=== PATIENT | male | born 2000 | race Hispanic/Latino ===

== ENCOUNTER → 2023-07-18 | Emergency (ER) | payer OTHER ==
[~2023-07-18] MED LIST: AZITHROMYCIN 1 GM PACKET ONE; CEFTRIAXONE 1000 MG/VIAL ONE; DOXYCYCLINE 100 MG CAP PO ONE; LIDOCAINE 1% MPF 2 ML AMPULE ONE
--- NOTE | 2023-07-18 16:47 | EDPHYS ---
Physician Documentation [facility] Name: Jey Medellin Age: 22 yrs Sex: Male : 2000 Arrival Date: 07/18/2023 Time: 15:32 Bed 12 Private MD: ED Physician Tk Kim HPI: 07/18 16:42 This 22 yrs old Male presents to ER via Ambulatory with complaints of STD pradip Exposure. 16:42 The patient presents with urinary symptoms, ITCHING , EXPOSED TO CHLAMYDIA. Onset: The pradip symptoms/episode began/occurred 3 day(s) ago. Modifying factors: The symptoms are alleviated by nothing, the symptoms are aggravated by nothing. Associated signs and symptoms: The patient has no apparent associated signs or symptoms. Severity of symptoms: At their worst the symptoms were mild, in the emergency department the symptoms are unchanged. The patient has experienced similar episodes in the past, a few times. Historical: - Allergies: 15:53 No Known Allergies; bp - Home Meds: 15:53 None [Active]; bp - PMHx: 15:53 None; bp - Immunization history:: Adult Immunizations up to date. - Social history:: Smoking status: . - Family history:: not pertinent. ROS: 16:42 Constitutional: Negative for fever, chills, and weight loss, Eyes: Negative for injury, pradip pain, redness, and discharge, ENT: Negative for injury, pain, and discharge, Neck: Negative for injury, pain, and swelling, Cardiovascular: Negative for chest pain, palpitations, and edema, Respiratory: Negative for shortness of breath, cough, wheezing, and pleuritic chest pain, Abdomen/GI: Negative for abdominal pain, nausea, vomiting, diarrhea, and constipation, Back: Negative for injury and pain, MS/Extremity: Negative for injury and deformity, Skin: Negative for injury, rash, and discoloration, Neuro: Negative for headache, weakness, numbness, tingling, and seizure, Psych: Negative for depression, anxiety, suicide ideation, homicidal ideation, and hallucinations, Allergy/Immunology: Negative for hives, rash, and allergies, Endocrine: Negative for neck swelling, polydipsia, polyuria, polyphagia, and marked weight changes, Hematologic/Lymphatic: Negative for swollen nodes, abnormal bleeding, and unusual bruising, 16:42 : Positive for urinary symptoms, Exam: 16:42 Constitutional: This is a well developed, well nourished patient who is awake, alert, pradip and in no acute distress. Head/Face: Normocephalic, atraumatic. Eyes: Pupils equal round and reactive to light, extra-ocular motions intact. Lids and lashes normal. Conjunctiva and sclera are non-icteric and not injected. Cornea within normal limits. Periorbital areas with no swelling, redness, or edema. ENT: Nares patent. No nasal discharge, no septal abnormalities noted. Tympanic membranes are normal and external auditory canals are clear. Oropharynx with no redness, swelling, or masses, exudates, or evidence of obstruction, uvula midline. Mucous membranes moist. Neck: Trachea midline, no thyromegaly or masses palpated, and no cervical lymphadenopathy. Supple, full range of motion without nuchal rigidity, or vertebral point tenderness. No Meningismus. Chest/axilla: Normal chest wall appearance and motion. Nontender with no deformity. No lesions are appreciated. Cardiovascular: Regular rate and rhythm with a normal S1 and S2. No gallops, murmurs, or rubs. Normal PMI, no JVD. No pulse deficits. Respiratory: Lungs have equal breath sounds bilaterally, clear to auscultation and percussion. No rales, rhonchi or wheezes noted. No increased work of breathing, no retractions or nasal flaring. Abdomen/GI: Soft, non-tender, with normal bowel sounds. No distension or tympany. No guarding or rebound. No evidence of tenderness throughout. Back: No spinal tenderness. No costovertebral tenderness. Full range of motion. Male : Normal genitalia with no discharge or lesions. Skin: Warm, dry with normal turgor. Normal color with no rashes, no lesions, and no evidence of cellulitis. MS/ Extremity: Pulses equal, no cyanosis. Neurovascular intact. Full, normal range of motion. Neuro: Awake and alert, GCS 15, oriented to person, place, time, and situation. Cranial nerves II-XII grossly intact. Motor strength 5/5 in all extremities. Sensory grossly intact. Cerebellar exam normal. Normal gait. Psych: Awake, alert, with orientation to person, place and time. Behavior, mood, and affect are within normal limits. Vital Signs: 15:51 BP 161 / 102; Pulse 98; Resp 18; Temp 98; Pulse Ox 100% ; Weight 56.25 kg; Height 5 ft. bp 10 in. ; 16:02 BP 140 / 80; Pulse 80; Resp 17; Temp 97.9(O); Pulse Ox 99% ; rs5 17:05 BP 131 / 78; Pulse 77; Resp 17; Pulse Ox 99% on R/A; rs5 15:51 Body Mass Index 17.79 (56.25 kg, 177.8 cm) bp MDM: 15:34 Patient medically screened. pradip 16:45 Differential diagnosis: UTI, urethritis. Data reviewed: vital signs, nurses notes. [facility] Consideration of Admission/Observation Escalation of care including admission/observation considered. I considered the following discharge prescriptions or medication management in the emergency department Medications were administered in the Emergency Department. See MAR. Test considered but Not performed: Labs: NO LABS , NO SWABS. Administered Medications: 16:46 Drug: Rocephin (cefTRIAXone) IM 1 grams IM once Route: IM; Site: left deltoid; rs5 17:13 Follow up: Response: No adverse reaction rs5 16:46 Drug: AZITHromycin PO 1 grams PO once Route: PO; rs5 17:13 Follow up: Response: No adverse reaction rs5 16:46 Drug: Doxycycline PO 100 mg PO once Route: PO; rs5 17:13 Follow up: Response: No adverse reaction rs5 Disposition Summary: 07/18/23 16:47 Discharge Ordered Notes: Location: Home [facility] Problem: new [facility] Symptoms: have improved pradip Condition: Stable pradip Diagnosis - Nonspecific urethritis [facility] Followup: pradip - With: Private Physician - When: 2 - 3 days - Reason: Recheck today's complaints, Continuance of care, Re-evaluation by your physician Discharge Instructions: - Discharge Summary Sheet [facility] - Urethritis, Adult [facility] - Safe Sex [facility] - Preventing Sexually Transmitted Infections, Adult [facility] Forms: - Medication Reconciliation Form [facility] - Thank You Letter [facility] - Antibiotic Education [facility] - Prescription Opioid Use [facility] - Patient Portal Instructions [facility] - Leadership Thank You Letter [facility] Prescriptions: - Doxycycline Hyclate 100 mg Oral Tablet - take 1 tablet ORAL route every 12 hours; 20 tablet; Refills: 0, Product pradip Selection Permitted Signatures: Tk Kim MD MD cha Peltier, Brian RN RN Justin Turner RN RN rs5
--- NOTE | 2023-07-18 16:47 | ER ---
Nurse's Notes [facility] Name: Jey Medellin Age: 22 yrs Sex: Male : 2000 Arrival Date: 07/18/2023 Time: 15:32 Bed 12 Private MD: Diagnosis: Nonspecific urethritis Presentation: 07/18 15:51 Chief complaint: Patient states: REFERRED BY PCP FOR ITCHY TESTICLES. Coronavirus bp screen: At this time, the client does not indicate any symptoms associated with coronavirus-19. Ebola Screen: No symptoms or risks identified at this time. Initial Sepsis Screen: Does the patient meet any 2 criteria? No. Patient's initial sepsis screen is negative. Does the patient have a suspected source of infection? No. Patient's initial sepsis screen is negative. Risk Assessment: Do you want to hurt yourself or someone else? Patient reports no desire to harm self or others. Onset of symptoms is unknown. 15:51 Method Of Arrival: Ambulatory bp 15:51 Acuity: MADDY 4 bp Triage Assessment: 15:53 General: Appears in no apparent distress. Behavior is calm, cooperative, appropriate bp for age. Pain: Denies pain. Historical: - Allergies: 15:53 No Known Allergies; bp - Home Meds: 15:53 None [Active]; bp - PMHx: 15:53 None; bp - Immunization history:: Adult Immunizations up to date. - Social history:: Smoking status: . - Family history:: not pertinent. Screenin:50 [facility] ED Fall Risk Assessment (Adult) History of falling in the last 3 months, rs5 including since admission No falls in past 3 months (0 pts) Confusion or Disorientation No (0 pts) Intoxicated or Sedated No (0 pts) Impaired Gait No (0 pts) Mobility Assist Device Used No (0 pt) Altered Elimination No (0 pt) Score/Fall Risk Level 0 - 2 = Low Risk Oriented to surroundings, Maintained a safe environment. Abuse screen: Denies threats or abuse. Nutritional screening: No deficits noted. Tuberculosis screening: No symptoms or risk factors identified. Assessment: 15:50 General: Appears in no apparent distress. comfortable, Behavior is calm, cooperative. rs5 Pain: Denies pain. Neuro: Level of Consciousness is awake, alert, obeys commands, Oriented to person, place, time, situation. Cardiovascular: Rhythm is regular. Respiratory: Respiratory effort is even, unlabored, Respiratory pattern is regular, symmetrical. GI: Abdomen is flat, non-distended, Bowel sounds present X 4 quads. Abd is soft and non tender X 4 quads. 15:50 : Reports itchy testicals Denies burning with urination, incontinence, pain urinary rs5 frequency. EENT: No signs and/or symptoms were reported regarding the EENT system. Derm: Skin is intact, Skin is pink, warm \T\ dry. Musculoskeletal: Range of motion: intact in all extremities. 16:55 Reassessment: Patient and/or family updated on plan of care and expected duration. Pain rs5 level reassessed. Patient is alert, oriented x 3, equal unlabored respirations, skin warm/dry/pink. Vital Signs: 15:51 BP 161 / 102; Pulse 98; Resp 18; Temp 98; Pulse Ox 100% ; Weight 56.25 kg; Height 5 ft. bp 10 in. ; 16:02 BP 140 / 80; Pulse 80; Resp 17; Temp 97.9(O); Pulse Ox 99% ; rs5 17:05 BP 131 / 78; Pulse 77; Resp 17; Pulse Ox 99% on R/A; rs5 15:51 Body Mass Index 17.79 (56.25 kg, 177.8 cm) bp ED Course: 15:33 Patient arrived in ED. rg4 15:34 Tk Kim MD is Attending Physician. pradip 15:52 Triage completed. bp 15:53 Arm band placed on. bp 15:55 Patient has correct armband on for positive identification. Bed in low position. Call rs5 light in reach. Side rails up X2. 16:05 Justin Turner, RN is Primary Nurse. rs5 16:15 No provider procedures requiring assistance completed. rs5 17:13 Patient did not have IV access during this emergency room visit. rs5 Administered Medications: 16:46 Drug: Rocephin (cefTRIAXone) IM 1 grams IM once Route: IM; Site: left deltoid; rs5 17:13 Follow up: Response: No adverse reaction rs5 16:46 Drug: AZITHromycin PO 1 grams PO once Route: PO; rs5 17:13 Follow up: Response: No adverse reaction rs5 16:46 Drug: Doxycycline PO 100 mg PO once Route: PO; rs5 17:13 Follow up: Response: No adverse reaction rs5 Medication: 16:15 VIS not applicable for this client. rs5 Outcome: 16:47 Discharge ordered by . pradip 17:06 Discharged to home ambulatory, rs5 17:06 Condition: stable 17:06 Discharge instructions given to patient, Instructed on discharge instructions, follow up and referral plans. medication usage, Demonstrated understanding of instructions, follow-up care, medications, Prescriptions given X 1, 17:14 Patient left the ED. rs5 Signatures: Tk Kim MD MD cha Garcia, Rubi rg4 Salomón Napoles, RN RN bp Justin Turner, RN RN rs5 Corrections: (The following items were deleted from the chart) 17:05 16:40 BP 140 / 80; Pulse 80bpm; Resp 17bpm; Pulse Ox 99%; Temp 97.9F Oral; rs5 rs5
[2023-07-18 19:27] VITALS: BP 131/78; TEMP 97.9; O2SAT 99
== END ==
LOC: ER 15:32
DX: N34.1 Nonspecific urethritis (principal)
CPT/HCPCS: J0696